=== PATIENT | male | born 2000 | race Asian ===

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

== ENCOUNTER 2018-01-13 16:10 | Emergency (ER) | payer OTHER ==
[2018-01-13 16:19] VITALS: BP 107/64
--- NOTE | 2018-01-13 16:55 | UC ---
Lower Extremity/Ankle HPI - HPI Summary HPI Summary: This pt is a 17 y/o male presenting to [facility] c/o right ankle pain since yesterday s/p injury. Pt reports he was playing soccer yesterday when he went up for a header and landed on a bump on the ground and had an internal rotation of right ankle. No head strike or LOC. Denies any other injuries, right toe pain , knee pain. Pt is not able to bear weight on his right ankle. Denies prior injury to right ankle. Denies any PMHx. - History of Current Complaint Chief Complaint: UCLowerExtremity Stated Complaint: ANKLE INJURY Hx Obtained From: Patient Onset/Duration: Lasting Days - 1, Still Present Severity Currently: Severe Pain Intensity: 9 Pain Scale Used: 0-10 Numeric Aggravating Factor(s): Ambulation Alleviating Factor(s): Rest Able to Bear Weight: No Related History: Other - while playing soccer - Allergies/Home Medications Allergies/Adverse Reactions: Allergies Allergy/AdvReac Type Severity Reaction Status Date / Time No Known Allergies Allergy Verified 01/13/18 16:20 Home Medications: Home Medications Ibuprofen [Advil] 400 mg PO DAILY WITH MEAL 01/13/18 [History Confirmed 01/13/18 ] PMH/Surg Hx/FS Hx/Imm Hx Other Endocrine History: DENIES: diabetes Other Cardiovascular History: DENIES: HTN Other History Of: Negative For: Anticoagulant Therapy - Surgical History Surgical History: None Surgery Procedure, Year, and Place: denies - Family History Known Family History: Negative: Cardiac Disease, Hypertension, Diabetes - Social History Occupation: Student - At [employer] Alcohol Use: Occasionally Substance Use Type: None Smoking Status (MU): Light Every Day Tobacco Smoker Review of Systems Constitutional: Negative Skin: Negative Eyes: Negative ENT: Negative Respiratory: Negative Cardiovascular: Negative Gastrointestinal: Negative Genitourinary: Negative Motor: Negative Neurovascular: Negative Musculoskeletal: Other: - POS: right ankle pain Neurological: Negative Psychological: Negative All Other Systems Reviewed And Are Negative: Yes Physical Exam - Summary Physical Exam Summary: General: well-appearing, no pain distress Skin: warm, color reflects adequate perfusion, dry Head: normal Eyes: EOMI, LEXA ENT: normal Neck: supple, nontender Respiratory: CTA, breath sounds present Cardiovascular: RRR Abdomen: soft, nontender Bowel: present Musculoskeletal: RLE: swollen over the right lateral malleolus. Tender distal to the fibula. Fibula is non tender to palpation. There is good capillary refill. Decreased ROM secondary to pain. Neurological: normal, sensory/motor intact, A&O x3 Psychological: affect/mood appropriate Triage Information Reviewed: Yes Vital Signs: Initial Vital Signs Temp 98.9 F 01/13/18 16:15 Pulse 87 01/13/18 16:15 Resp 16 01/13/18 16:15 BP 107/64 01/13/18 16:15 Pulse Ox 98 01/13/18 16:15 Vital Signs Reviewed: Yes Procedures - Splinting Right Lower Extremity Location: Right ankle Splint: Posterior and Stirrup Pre-Proc Neuro Vasc Exam: normal Post-Proc Neuro Vasc Exam: normal Diagnostics - Radiology Right ankle XR Xray Interpretation: Positive (See Comments) - IMPRESSION: Soft tissue swelling. There is suggestion of a nondisplaced fracture of the distal fibula. Dr. Lu has reviewed this report. Radiology Interpretation Completed By: Radiologist Lower Extremity Course/Dx - Course Course Of Treatment: Medications reviewed. DISCUSSED X-RAY RESULT WITH THE PATIENT. SPLINTED WITH A POSTERIOR AND STIRRUP SPLINT BY MYSELF. NEUOVASCULAR INTACT AFTER SPLINT PLACEMENT. CRUTCHES AND NON WEIGHT BEARING. F/U WITH ORTHOPEDICS. - Differential Dx/Diagnosis Provider Diagnoses: RIGHT ANKLE NON DISPLACED FIBULA FRACTURE Discharge - Sign-Out/Discharge Documenting (check all that apply): Patient Departure - Discharge All imaging exams completed and their final reports reviewed: Yes - Discharge Plan Condition: Stable Disposition: HOME Patient Education Materials: Ankle Fracture (ED), Crutch Instructions (ED) Referrals: [facility] [Outside] Vaughn Narayan MD [Medical Doctor] - [facility] - Oral [Primary Care Provider] - Additional Instructions: FOLLOW UP WITH ORTHOPEDICS. GET RECHECKED FOR ANY WORSENING OF YOUR CONDITION OR QUESTIONS OR CONCERNS. - Billing Disposition and Condition Condition: STABLE Disposition: Home - Attestation Statements Document Initiated by Scribe: Yes Documenting Scribe: Anais Whittington Provider For Whom Scribe is Documenting (Include Credential): Brendon Lu MD Scribe Attestation: Anais Boland, scribed for Brendon Lu MD on 01/13/18 at 1753. Scribe Documentation Reviewed: Yes Provider Attestation: The documentation as recorded by the scribe, Anais Whittington accurately reflects the service I personally performed and the decisions made by me, Brendon Lu MD
--- NOTE | 2018-01-13 17:00 | RAD ---
Indication: Right ankle pain. 3 views of the right ankle demonstrate soft tissue swelling laterally. There is suggestion of a nondisplaced fracture through the distal fibula. Ankle mortise is otherwise intact. IMPRESSION: Soft tissue swelling. There is suggestion of a nondisplaced fracture of the distal fibula.
== END 2018-01-13 17:39 | disposition home or self-care (01) ==
LOC: UCEAST 16:10
DX: S99.911A Unspecified injury of right ankle, initial encounter (principal); X50.1XXA Overexertion from prolonged static or awkward postures, initial encounter; Y93.66 Activity, soccer; Y92.322 Soccer field as the place of occurrence of the external cause; F17.200 Nicotine dependence, unspecified, uncomplicated
CPT/HCPCS: 99212; G0463

== ENCOUNTER → 2018-06-14 18:12 | Emergency (ER) | payer OTHER ==
--- NOTE | 2018-06-14 20:44 | ED ---
Lower Extremity - HPI Summary HPI Summary: 18 year old male presents with left ankle pain today. He states he inverted his ankle playing soccer. His barely able to place weight on the wound. He denies any previous fracture area. Has no medical conditions. Denies any other injury. - History of Current Complaint Chief Complaint: EDExtremityLower Stated Complaint: ANKLE INJURY Time Seen by Provider: 06/14/18 20:36 Pain Intensity: 8 - Allergies/Home Medications Allergies/Adverse Reactions: Allergies Allergy/AdvReac Type Severity Reaction Status Date / Time No Known Allergies Allergy Verified 06/14/18 18:18 PMH/Surg Hx/FS Hx/Imm Hx Endocrine/Hematology History: Denies: Hx Anticoagulant Therapy, Hx Blood Disorders, Hx Diabetes, Hx Thyroid Disease, Hx Unexplained Bleeding Cardiovascular History: Denies: Hx Hypertension Respiratory History: Denies: Hx Asthma, Hx Chronic Obstructive Pulmonary Disease (COPD) GI History: Denies: Hx Ulcer - Surgical History Surgery Procedure, Year, and Place: denies Infectious Disease History: No Infectious Disease History: Denies: Hx Hepatitis, Hx Human Immunodeficiency Virus (HIV), Traveled Outside the in Last 30 Days - Family History Known Family History: Negative: Cardiac Disease, Hypertension, Diabetes - Social History Alcohol Use: Occasionally Hx Substance Use: No Substance Use Type: Reports: None Hx Tobacco Use: No Smoking Status (MU): Light Every Day Tobacco Smoker Review of Systems Negative: Fever Negative: Chest Pain Negative: Shortness Of Breath Positive: Myalgia - left ankle pain All Other Systems Reviewed And Are Negative: Yes Physical Exam Triage Information Reviewed: Yes Vital Signs On Initial Exam: Initial Vitals Temp Pulse Resp BP Pulse Ox 98.5 F 83 16 118/76 97 06/14/18 18:16 06/14/18 18:16 06/14/18 18:16 06/14/18 18:16 06/14/18 18:16 Vital Signs Reviewed: Yes Appearance: Positive: Well-Appearing Skin: Positive: Warm, Dry Head/Face: Positive: Normal Head/Face Inspection Eyes: Positive: Normal, Conjunctiva Clear ENT: Positive: Pharynx normal Respiratory/Lung Sounds: Positive: Clear to Auscultation, Breath Sounds Present Cardiovascular: Positive: Normal, RRR Musculoskeletal: Positive: Limited @ - left ankle, Other - tenderness lateral left ankle, good pulses, sensation grossly intact. edmea to left lateral ankle Neurological: Positive: Normal Psychiatric: Positive: Normal Diagnostics - Vital Signs Vital Signs Temp Pulse Resp BP Pulse Ox 06/14/18 20:23 98.3 F 79 16 113/65 100 06/14/18 18:16 98.5 F 83 16 118/76 97 - Laboratory Lab Statement: Any lab studies that have been ordered have been reviewed, and results considered in the medical decision making process. - Radiology ankle, foot Radiology Interpretation Completed By: ED Physician Summary of Radiographic Findings: no fracture Lower Extremity Course/Dx - Course Course Of Treatment: 18 year old male presents with left ankle pain today. He states he inverted his ankle playing soccer. His barely able to place weight on the wound. He denies any previous fracture area. Has no medical conditions. Denies any other injury. On exam tenderness over the lateral malleolus of left ankle. neurovascular Intact. X-ray read by me as normal. Placed in Jr and gel splint. patient has crutches at home. Told to ice elevate. Patient understands agrees with plan. - Diagnoses Differential Diagnosis/HQI/PQRI: Positive: Fracture (Closed), Sprain, Strain Provider Diagnoses: Left ankle injury Discharge - Sign-Out/Discharge Documenting (check all that apply): Patient Departure Patient Received Moderate/Deep Sedation with Procedure: No - Discharge Plan Condition: Good Disposition: HOME Patient Education Materials: Ankle Sprain (DC) Referrals: [facility] - Mariama GARCIA [Primary Care Provider] - Additional Instructions: Stay off ankle as much as possible Ice, elevate, keep in JR as needed Ibuprofen or tyenlol every 6 hours for pain Follow up with mariama if no improvement Return to ED if develop or any new or worsening symptoms - Billing Disposition and Condition Condition: GOOD Disposition: Home
[2018-06-14 21:32] VITALS: BP 119/63
== END | disposition home or self-care (01) ==
LOC: ED 18:12
DX: S99.912A Unspecified injury of left ankle, initial encounter (principal); X50.9XXA Other and unspecified overexertion or strenuous movements or postures, initial encounter; Y93.66 Activity, soccer; Y92.9 Unspecified place or not applicable
CPT/HCPCS: 99282